=== PATIENT | female | born 1950 | race Caucasian/White ===

== ENCOUNTER 2016-12-20 05:36 | Outpatient (CLI) | payer MEDICARE, OTHER ==
[2016-12-20] MEDS ORDERED: ISM60TCR PO (13:57)
[2016-12-20] MEDS ORDERED: TRAZ100T92 PO (13:57)
[2016-12-20] MEDS ORDERED: DILT180C54 PO (13:57)
[2016-12-20] MEDS ORDERED: LEVO50TA6 PO (13:57)
[2016-12-20] MEDS ORDERED: FURO20TA4 PO (13:57)
[2016-12-20] MEDS ORDERED: SERT50TA2 PO (13:57)
[2016-12-20] MEDS ORDERED: FERR325C PO (13:57)
[2016-12-20] MEDS ORDERED: CYCL5TAB PO (13:57)
[2016-12-20] MEDS ORDERED: DICL75TA2 PO (13:57)
[2016-12-20] MEDS ORDERED: GABA-488 PO (13:57)
[2016-12-20] MEDS ORDERED: OMEP40CA36 PO (13:57)
[2016-12-20] MEDS ORDERED: HYDR-3816 PO (13:57)
[2016-12-20] MEDS ORDERED: TPR25T PO (13:57)
[2016-12-20] MEDS ORDERED: PRAV40TA2 PO (13:57)
[2016-12-20] MEDS ORDERED: SERT100T8 PO (13:57)
== END 2016-12-20 14:15 ==
DX: R59.0 Localized enlarged lymph nodes (principal)

== ENCOUNTER 2016-12-27 05:49 | Day surgery (SDC) | payer MEDICARE, OTHER ==
[~2016-12-27] VITALS: Ht 160 cm; Wt 82.1 kg
[~2016-12-27 05:49] MED LIST: CYCL5TAB PO; DICL75TA2 PO; DILT180C54 PO; FERR325C PO; FURO20TA4 PO; GABA-488 PO; HYDR-3816 PO; ISM60TCR PO; LEVO50TA6 PO; OMEP40CA36 PO; PRAV40TA2 PO; SERT100T8 PO; SERT50TA2 PO; TPR25T PO; TRAZ100T92 PO
[2016-12-27 06:40] VITALS: BP 121/72
[2016-12-27] MEDS ORDERED: LACTATED RINGERS 1,000 ML IV PRN (06:52)
--- NOTE | 2016-12-27 06:56 | Progress Note-Pre Operative ---
Pre-Operative Progress Note H&P Reviewed The H&P was reviewed, patient examined and no changes noted. Date Seen by Provider: Dec 27, 2016 Time Seen by Provider: 06:40 Date H&P Reviewed: Dec 27, 2016 Time H&P Reviewed: 06:40 Pre-Operative Diagnosis: Right Posterior Neck Mass PAWAN GOULD MD Dec 27, 2016 6:56 am
[2016-12-27] MEDS ORDERED: FAMOTIDINE 20MG/2ML IV (PEPCID) IV ONE (07:00)
[2016-12-27] MEDS ORDERED: LIDOCAINE/EPI 1%-1:200,000 (XYLOCAINE) 30 ML VIAL ONE (07:31)
[2016-12-27] MEDS ORDERED: MUPIROCIN 2% OINT 22 GM (BACTROBAN) TUBE ONE (07:32)
[2016-12-27] MEDS ORDERED: ONDANSETRON 4 MG/2 ML (SDV) Z0FRAN ONE (07:33)
[2016-12-27] MEDS ORDERED: SEVOFLURANE (ULTANE) 15 ML INHAL SOLN ONE ×2 (07:33→08:40)
[2016-12-27] MEDS ORDERED: LIDOCAINE PF 2% 5 ML (XYLOCAINE) VIAL ONE (07:33)
[2016-12-27] MEDS ORDERED: fentaNYL INJECTION 100 MCG/2 ML AMP ONE (07:33)
[2016-12-27] MEDS ORDERED: MIDAZOLAM 2 MG/2 ML (VERSED) VIAL ONE (07:33)
[2016-12-27] MEDS ORDERED: DEXAMETHASONE PF 10 MG/ML (DECADRON) VIAL ONE (07:33)
[2016-12-27] MEDS ORDERED: LACTATED RINGERS 1,000 ML IV ONE (07:33)
[2016-12-27] MEDS ORDERED: proPOfol 200 MG/20 ML (DIPRIVAN) VIAL IV ONE (07:33)
--- NOTE | 2016-12-27 08:47 | Progress Note-Post Operative ---
Post-Operative Progess Note Surgeon (s)/Glass Production Machine Operator (s) Surgeon PAWAN GOULD MD Glass Production Machine Operator n/a Pre-Operative Diagnosis Right Posterior Neck Mass Post-Operative Diagnosis same Post-Op Procedure Note Date of Procedure: Dec 27, 2016 Name of Procedure Performed: Excision of Right Posterior Neck Mass Description & Findings Description and Findings: n/a Anesthesia Type get Estimated Blood Loss minimal Packing none. Specimen(s) collected/removed right posteiro neck mass-probable lipoma PAWAN GOULD MD Dec 27, 2016 8:47 am
[2016-12-27] MEDS ORDERED: HYDROcodone/APAP 5 MG/325 MG (LORTAB) TAB PO PRN (09:00)
[2016-12-27] MEDS ORDERED: ONDANSETRON 4 MG/2 ML (SDV) Z0FRAN IVP PRN (09:00)
[2016-12-27] MEDS ORDERED: HYDROmorphone (DILAUDID) 2 MG/ML VIAL IVP PRN (09:00)
[2016-12-27] MEDS ORDERED: ACETAMINOPHEN 325 MG TABLET/CAPLET (TYLENOL) PO PRN (09:00)
[2016-12-27] MEDS ORDERED: morphine INJ 10 MG/ML 1ML (SYR OR VIAL) IVP PRN (09:00)
[2016-12-27] MEDS ORDERED: HYDR-3812 PO (09:10)
[2016-12-27 09:45] VITALS: BP 138/81
[2016-12-27 10:15] VITALS: BP 123/65
== END 2016-12-27 10:30 | disposition home or self-care (01) ==
LOC: SDC 05:49
PROVIDERS: ATTEND Otolaryngology Otolaryngology/Facial Plastic Surgery
DX: D17.0 Benign lipomatous neoplasm of skin and subcutaneous tissue of head, face and neck (principal); I25.10 Atherosclerotic heart disease of native coronary artery without angina pectoris; I10 Essential (primary) hypertension; E78.5 Hyperlipidemia, unspecified; G47.33 Obstructive sleep apnea (adult) (pediatric); Z79.899 Other long term (current) drug therapy
CPT/HCPCS: 87081